=== PATIENT | male | born 1945 | race Caucasian/White ===

== ENCOUNTER 2017-01-05 13:01 | Emergency (ER) | payer MEDICARE, MEDICAID ==
[~2017-01-05] VITALS: Ht 172.7 cm; Wt 65.0 kg
[2017-01-05 13:13] VITALS: BP 123/79
[2017-01-05] MEDS ORDERED: MAALOX/HYOSCYAMINE/LIDOCAINE 45 ML BTL ONE (13:20)
[2017-01-05] MEDS ORDERED: PLEASE ENTER ALLERGIES MC SCH ×2 (13:30)
[2017-01-05] MEDS ORDERED: MAALOX/HYOSCYAMINE/LIDOCAINE 45 ML BTL PO ONE (13:30)
== END 2017-01-05 14:15 | disposition home or self-care (01) ==
LOC: ED 13:51
DX: T18.108A Unspecified foreign body in esophagus causing other injury, initial encounter (principal); K21.9 Gastro-esophageal reflux disease without esophagitis; I10 Essential (primary) hypertension; X58.XXXA Exposure to other specified factors, initial encounter; Y93.89 Activity, other specified; Y92.89 Other specified places as the place of occurrence of the external cause; Y99.8 Other external cause status
CPT/HCPCS: 99283

== ENCOUNTER 2017-05-22 05:03 | Emergency (ER) | payer MEDICARE, MEDICAID ==
[~2017-05-22] VITALS: Ht 172.7 cm; Wt 75.0 kg
[2017-05-22] MEDS ORDERED: BENZ-17 PO (05:23)
[2017-05-22] MEDS ORDERED: CETI10TA32 PO (05:23)
[2017-05-22] MEDS ORDERED: TRAM50TA2 PO (05:23)
[2017-05-22] MEDS ORDERED: SIMV10TA3 PO (05:23)
[2017-05-22] MEDS ORDERED: DOCU100C33 PO (05:23)
[2017-05-22] MEDS ORDERED: [UNRECOGNIZED DRUG - CODE] OP (05:23)
[2017-05-22] MEDS ORDERED: OMEP-110 PO (05:23)
[2017-05-22] MEDS ORDERED: SERT50TA5 PO (05:23)
[2017-05-22] MEDS ORDERED: BENA40TA2 PO (05:23)
[2017-05-22] MEDS ORDERED: METR1KIT XX (05:23)
[2017-05-22] MEDS ORDERED: PANTOPRAZOLE 40 MG IV ONE (05:25)
[2017-05-22] MEDS ORDERED: FAMOTIDINE 20 MG/2 ML ONE (05:25)
[2017-05-22] MEDS ORDERED: ONDANSETRON 2MG/ML, 2ML ONE (05:25)
[2017-05-22] MEDS ORDERED: FAMOTIDINE 20 MG/2 ML IVPush ONE (05:30)
[2017-05-22] MEDS ORDERED: SODIUM CHLORIDE FLUSH 10ML SYR IVF ONE (05:30)
[2017-05-22] MEDS ORDERED: ONDANSETRON 2MG/ML, 2ML IVPush ONE (05:30)
[2017-05-22] MEDS ORDERED: SODIUM CHLORIDE 0.9% 1,000ML IVBOLUS ONE (05:30)
[2017-05-22] MEDS ORDERED: PANTOPRAZOLE 40 MG IV IVPush ONE (05:30)
[2017-05-22 05:42] LABS: BASOPHILS # (AUTO) 0.02 x10^3/uL (0-0.1); BASOPHILS % (AUTO) 0 % (0-1); EOSINOPHILS # (AUTO) 0.03 x10^3/uL (0-0.4); EOSINOPHILS % (AUTO) 0 % (1-7); LYMPHOCYTES # (AUTO) 0.45 x10^3/uL (1-3.4); LYMPHOCYTES % (AUTO) 6 % (22-44); MD NO; MEAN CORPUSCULAR HEMOGLOBIN 30.7 pg (27.5-34.5); MEAN CORPUSCULAR HGB CONC 33.8 g/dL (33.2-36.2); MEAN CORPUSCULAR VOLUME 90.9 fL (81-97); MEAN PLATELET VOLUME 7.7 fL (7.4-10.4); MONOCYTES # (AUTO) 0.33 x10^3/uL (0.2-0.8); MONOCYTES % (AUTO) 4 % (2-9); NEUTROPHILS # (AUTO) 7.36 x10^3/uL (1.8-6.8); NEUTROPHILS % (AUTO) 90 % (42-75); PLATELET COUNT 206 x10^3/uL (130-400); RED BLOOD COUNT 4.43 x10^6/uL (4.38-5.82); RED CELL DISTRIBUTION WIDTH 13.6 % (9.4-14.8)
[2017-05-22 05:53] LABS: ALANINE AMINOTRANSFERASE 23 U/L (12-78); ALBUMIN 3.8 g/dL (3.4-5.0); ANION GAP 9 mmol/L (5-15); CALCIUM 10.2 mg/dL (8.5-10.1); CHLORIDE 102 mmol/L (98-107)
[2017-05-22 05:55] LABS: ALKALINE PHOSPHATASE 54 U/L (45-117); BILIRUBIN,TOTAL 0.5 mg/dL (0.2-1.0); TOTAL PROTEIN 7.5 g/dL (6.4-8.2)
[2017-05-22] MEDS ORDERED: MAALOX/HYOSCYAMINE/LIDOCAINE 45 ML BTL PO ONE (06:00)
[2017-05-22] MEDS ORDERED: OMNIPAQUE 350 MG/ML, 100ML BOTTLE ONE (07:21)
[2017-05-22] MEDS ORDERED: MAALOX/HYOSCYAMINE/LIDOCAINE 45 ML BTL ONE (07:51)
[2017-05-22 11:52] VITALS: BP 143/77
== END 2017-05-22 11:55 | disposition home or self-care (01) ==
LOC: ED 05:52
DX: K29.00 Acute gastritis without bleeding (principal); K21.9 Gastro-esophageal reflux disease without esophagitis; I10 Essential (primary) hypertension; E78.00 Pure hypercholesterolemia, unspecified; Z86.73 Personal history of transient ischemic attack (TIA), and cerebral infarction without residual deficits
CPT/HCPCS: 36415; 74177; 80053; 83690; 85025; 86850; 86900; 93005; 96374; 96375; 99285; C9113; J2405; J7030; Q9967; S0028

== ENCOUNTER 2018-05-08 22:54 | Inpatient (IN) | payer MEDICARE, MEDICAID ==
[~2018-05-08] VITALS: Ht 172.7 cm; Wt 68.9 kg
[~2018-05-08 22:54] MED LIST: BENA40TA3 PO; BENZ-17 PO; CETI10TA32 PO; DOCU100C33 PO; METR1KIT XX; OMEP-110 PO; SERT50TA28 PO; SIMV10TA3 PO; TRAM50TA2 PO; [UNRECOGNIZED DRUG - CODE] OP
--- NOTE | 2018-05-08 23:08 | NUR ---
CHUCK VELAZQUEZ NUMBER [phone] FOR POC UPDATE FOR PT.
--- NOTE | 2018-05-08 23:11 | NUR ---
PT PRESENTS TO ED C/O VOMITING x2 TODAY. STATES ABLE TO TOLERATE PO INTAKE. DENIES ANY OTHER COMPLAINTS AT THIS TIME. NO FEVER NOTED. NO EMESIS NOTED IN ED. PT CAN TOLERATE PO INTAKE. SEEN AT [facility] TODAY AND HERE BECAUSE "THEY DONT KNOW WHAT THE HELL THEY TALKIN BOUT."
[2018-05-08] MEDS ORDERED: ONDANSETRON ODT 4 MG PO ONE (23:30)
--- NOTE | 2018-05-08 23:44 | NUR ---
went to perform ekg and pt/gurney was not in room. will check back soon
--- NOTE | 2018-05-09 00:04 | NUR ---
Patient could not tolerate positioning for x-ray.
[2018-05-09] MEDS ORDERED: ONDANSETRON ODT 4 MG ONE (00:14)
--- NOTE | 2018-05-09 00:24 | NUR ---
BREAK RN: PT HAD ONE EPISODE OF DARK EMESIS, MEDICATED PER EMAR. CLEANED, GOWN CHANGED.
[2018-05-09 00:35] LABS: MEAN CORPUSCULAR HGB CONC 31.4 g/dL (33.2-36.2); MEAN CORPUSCULAR VOLUME 79.6 fL (81-97); PLATELET COUNT 447 x10^3/uL (130-400); RED CELL DISTRIBUTION WIDTH 24.5 % (9.4-14.8)
[2018-05-09 00:39] LABS: ALANINE AMINOTRANSFERASE 35 U/L (12-78); ALBUMIN 4.2 g/dL (3.4-5.0); ANION GAP 8 mmol/L (5-15); CALCIUM 9.5 mg/dL (8.5-10.1); CHLORIDE 104 mmol/L (98-107); CREATININE 1.04 mg/dL (0.7-1.3)
[2018-05-09 00:44] LABS: ALKALINE PHOSPHATASE 78 U/L (45-117); BILIRUBIN,TOTAL 0.5 mg/dL (0.2-1.0); TOTAL PROTEIN 8.1 g/dL (6.4-8.2); TROPONIN I < 0.015 ng/mL (0.000-0.045)
[2018-05-09 00:51] LABS: BASOPHILS # (AUTO) 0.05 x10^3/uL (0-0.1); BASOPHILS % (AUTO) 0 % (0-1); EOSINOPHILS # (AUTO) 0.22 x10^3/uL (0-0.4); EOSINOPHILS % (AUTO) 1 % (1-7); LYMPHOCYTES # (AUTO) 1.16 x10^3/uL (1-3.4); LYMPHOCYTES % (AUTO) 7 % (22-44); MD SCAN; MONOCYTES # (AUTO) 0.57 x10^3/uL (0.2-0.8); MONOCYTES % (AUTO) 4 % (2-9); NEUTROPHILS # (AUTO) 14.07 x10^3/uL (1.8-6.8); NEUTROPHILS % (AUTO) 88 % (42-75)
[2018-05-09] MEDS ORDERED: SODIUM CHLORIDE 0.9% 1,000 ML IV ONE (00:51)
[2018-05-09] MEDS ORDERED: METOCLOPRAMIDE 5 MG/ML, 2ML IVPush ONE (01:00)
[2018-05-09] MEDS ORDERED: SODIUM CHLORIDE FLUSH 10ML SYR IVF ONE ×2 (01:00→02:30)
[2018-05-09] MEDS ORDERED: METOCLOPRAMIDE 5 MG/ML, 2ML ONE (01:23)
--- NOTE | 2018-05-09 01:25 | NUR ---
PT MEDICATED PER MAR. IV STARTED AND NS INFUSING APPROPRIATELY. NO IMMEDIATE NEEDS AT THIS TIME. CALL LIGHT WITHIN REACH.
--- NOTE | 2018-05-09 02:00 | NUR ---
PT PUKED AND WHAT APPEARED TO BE DARK RED APPEARING EMESIS. MD NOTIFIED.
[2018-05-09] MEDS ORDERED: PANTOPRAZOLE 80 MG in SODIUM CHLORIDE 0.9% 100 ML IV SCH (02:01)
[2018-05-09] MEDS ORDERED: PANTOPRAZOLE 40 MG IV ONE (02:05)
[2018-05-09] MEDS ORDERED: ONDANSETRON 2MG/ML, 2ML ONE (02:05)
--- NOTE | 2018-05-09 02:20 | NUR ---
PT IN IMAGING.
[2018-05-09] MEDS ORDERED: PANTOPRAZOLE 40 MG IV IVPush ONE (02:30)
[2018-05-09] MEDS ORDERED: ONDANSETRON 2MG/ML, 2ML IVPush ONE (02:30)
--- NOTE | 2018-05-09 02:37 | NUR ---
MEDICATED PER JUL. NADN. VSS. CALL LIGHT WITHIN REACH. AWAITING IMAGING RESULTS.
[2018-05-09] MEDS: SODIUM CHLORIDE 0.9% 1,000 ML IV SCH ×3 (02:54→22:08)
[2018-05-09 02:55] LABS: INTERNATIONAL NORMALIZED RATIO 1.03 (0.93-1.1); PROTHROMBIN TIME 10.9 Seconds (9.6-11.5)
[2018-05-09] MEDS ORDERED: BISACODYL 10 MG SUPP PR PRN (03:00)
[2018-05-09] MEDS ORDERED: hydrALAzine 20 MG/ML, 1ML IVPush PRN (03:00)
[2018-05-09] MEDS ORDERED: POLYETHYLENE GLYCOL 17 GM PACKET PO PRN (03:00)
[2018-05-09] MEDS ORDERED: GABAPENTIN 300 MG CAPSULE PO PRN (03:00)
[2018-05-09] MEDS ORDERED: ONDANSETRON 2MG/ML, 2ML IVPush PRN (03:00)
[2018-05-09] MEDS ORDERED: ONDANSETRON ODT 4 MG PO PRN (03:00)
[2018-05-09] MEDS ORDERED: PROMETHAZINE 25 MG/ML, 1ML IM PRN (03:00)
[2018-05-09] MEDS ORDERED: DOCUSATE 100 MG CAPSULE PO PRN (03:00)
[2018-05-09] MEDS ORDERED: LABETALOL 5MG/ML, 20ML IVPush PRN (03:00)
[2018-05-09 03:57] LABS: FREE T4 (FREE THYROXINE) 1.15 ng/dL (0.76-1.46); THYROID STIMULATING HORMONE 2.92 mIU/L (0.358-3.740)
[2018-05-09 04:07] LABS: HEMOGLOBIN A1C 4.8 % (4.2-6.3)
[2018-05-09 04:15] VITALS: BP 165/90
[2018-05-09] MEDS: BENAZEPRIL 20 MG TABLET PO SCH ×5 (04:27→21:00)
[2018-05-09 04:47] LABS: MICROSCOPIC NOT IND
[2018-05-09 04:51] LABS: CULTURE INDICATED? NO
[2018-05-09 07:20] VITALS: BP 159/84
[2018-05-09] MEDS: OMEPRAZOLE 20 MG CAPSULE.DR PO SCH ×2 (08:49→21:42)
[2018-05-09] MEDS: SERTRALINE 50MG TABLET PO SCH (08:49)
[2018-05-09] MEDS: SENNA/DOCUSATE TABLET PO SCH (09:30)
[2018-05-09 12:35] VITALS: BP 152/100
[2018-05-09] MEDS ORDERED: LIDOCAINE-MPF 2% ,5ML ONE (15:58)
[2018-05-09] MEDS ORDERED: PROPOFOL 10 MG/ML, 20ML ONE (15:58)
[2018-05-09] MEDS ORDERED: hydrALAzine 20 MG/ML, 1ML IV PRN (16:30)
[2018-05-09] MEDS ORDERED: OXYcodone 5 MG/5 ML ORAL.SOL UDC PO PRN (16:30)
[2018-05-09] MEDS ORDERED: HYDROmorphone 2 MG/ML, 1ML IVPush PRN (16:30)
[2018-05-09] MEDS ORDERED: LABETALOL 5MG/ML, 20ML IV PRN (16:30)
[2018-05-09] MEDS ORDERED: ACETAMINOPHEN 325 MG TABLET PO PRN (16:30)
[2018-05-09] MEDS ORDERED: FENTANYL PF 100 MCG/2ML IV PRN (16:30)
[2018-05-09] MEDS ORDERED: ONDANSETRON 2MG/ML, 2ML IV PRN (16:30)
[2018-05-09] MEDS ORDERED: ONDANSETRON ODT 8 MG PO PRN (16:30)
[2018-05-09] MEDS: morphine SULFATE 10 MG/ML, 1ML IVPush PRN (18:23)
[2018-05-09 19:52] VITALS: BP 111/72
[2018-05-09] MEDS: SIMVASTATIN 10 MG TABLET PO SCH (21:42)
[2018-05-09] MEDS: ACETAMINOPHEN 325 MG TABLET PO PRN (21:59)
[2018-05-10 01:59] VITALS: BP 123/73
[2018-05-10] MEDS: PANTOPRAZOLE 80 MG in SODIUM CHLORIDE 0.9% 100 ML IV SCH ×3 (02:49→23:09)
[2018-05-10 05:42] LABS: CALCIUM 7.8 mg/dL (8.5-10.1); CHLORIDE 110 mmol/L (98-107)
[2018-05-10 05:48] LABS: ALANINE AMINOTRANSFERASE 25 U/L (12-78); ALBUMIN 3.4 g/dL (3.4-5.0); ALKALINE PHOSPHATASE 59 U/L (45-117); ANION GAP 6 mmol/L (5-15); BILIRUBIN,TOTAL 0.4 mg/dL (0.2-1.0); CHOL/HDL RATIO 3.1; CHOLESTEROL, TOTAL 103 mg/dL (140-239); CREATININE 0.89 mg/dL (0.7-1.3); HDL CHOL % 32 % (26-37); HDL CHOLESTEROL (DIRECT) 33 mg/dL (40-60); LDL CHOLESTEROL,CALCULATED 50 mg/dL (54-169); LDL/HDL RATIO 1.5 (0.5-3.0); TOTAL PROTEIN 6.4 g/dL (6.4-8.2); TRIGLYCERIDES 102 mg/dL (50-200); VLDL CHOLESTEROL 20 mg/dL (0-25)
[2018-05-10 07:21] VITALS: BP 106/63
[2018-05-10] MEDS: BENAZEPRIL 20 MG TABLET PO SCH ×4 (09:10→23:13)
[2018-05-10] MEDS: SENNA/DOCUSATE TABLET PO SCH (09:10)
[2018-05-10] MEDS: OMEPRAZOLE 20 MG CAPSULE.DR PO SCH ×2 (09:11→19:53)
[2018-05-10] MEDS: ACETAMINOPHEN 325 MG TABLET PO PRN ×2 (09:11→19:53)
[2018-05-10] MEDS: SERTRALINE 50MG TABLET PO SCH (09:11)
[2018-05-10] MEDS ORDERED: PANT40TA3 PO (13:32)
[2018-05-10 14:24] VITALS: BP 107/69
[2018-05-10 18:44] VITALS: BP 118/74
[2018-05-10] MEDS: SIMVASTATIN 10 MG TABLET PO SCH (19:53)
[2018-05-11 00:37] VITALS: BP 152/78
[2018-05-11 07:41] VITALS: BP 130/74
[2018-05-11] MEDS: OMEPRAZOLE 20 MG CAPSULE.DR PO SCH ×2 (08:37→20:59)
[2018-05-11] MEDS: BENAZEPRIL 20 MG TABLET PO SCH ×3 (08:37→18:08)
[2018-05-11] MEDS: morphine SULFATE 10 MG/ML, 1ML IVPush PRN (08:37)
[2018-05-11] MEDS: SERTRALINE 50MG TABLET PO SCH (08:38)
[2018-05-11] MEDS: SENNA/DOCUSATE TABLET PO SCH (08:39)
[2018-05-11] MEDS: PANTOPRAZOLE 80 MG in SODIUM CHLORIDE 0.9% 100 ML IV SCH ×2 (10:29→21:20)
[2018-05-11 11:04] LABS: ALANINE AMINOTRANSFERASE 28 U/L (12-78); ALBUMIN 3.4 g/dL (3.4-5.0); ANION GAP 5 mmol/L (5-15); CALCIUM 7.9 mg/dL (8.5-10.1); CHLORIDE 112 mmol/L (98-107); CREATININE 0.87 mg/dL (0.7-1.3)
[2018-05-11 11:10] LABS: ALKALINE PHOSPHATASE 59 U/L (45-117); BILIRUBIN,TOTAL 0.3 mg/dL (0.2-1.0); TOTAL PROTEIN 6.5 g/dL (6.4-8.2)
[2018-05-11 13:09] LABS: BASOPHILS # (AUTO) 0.11 x10^3/uL (0-0.1); BASOPHILS % (AUTO) 2 % (0-1); EOSINOPHILS # (AUTO) 0.24 x10^3/uL (0-0.4); EOSINOPHILS % (AUTO) 4 % (1-7); LYMPHOCYTES # (AUTO) 1.25 x10^3/uL (1-3.4); LYMPHOCYTES % (AUTO) 18 % (22-44); MD MORPH REVIEW ONLY; MEAN CORPUSCULAR HEMOGLOBIN 25.8 pg (27.5-34.5); MEAN CORPUSCULAR HGB CONC 31.7 g/dL (33.2-36.2); MEAN CORPUSCULAR VOLUME 81.4 fL (81-97); MEAN PLATELET VOLUME 8.3 fL (7.4-10.4); MONOCYTES # (AUTO) 0.58 x10^3/uL (0.2-0.8); MONOCYTES % (AUTO) 8 % (2-9); NEUTROPHILS # (AUTO) 4.84 x10^3/uL (1.8-6.8); NEUTROPHILS % (AUTO) 69 % (42-75); PLATELET COUNT 352 x10^3/uL (130-400); RED BLOOD COUNT 4.16 x10^6/uL (4.38-5.82); RED CELL DISTRIBUTION WIDTH 26.6 % (9.4-14.8)
[2018-05-11 13:10] LABS: ANISOCYTOSIS 2+; HYPOCHROMIA 1+; MICROCYTOSIS 1+; OVALOCYTES 1+; POLYCHROMASIA 1+
[2018-05-11 13:11] LABS: <PLATELET ESTIMATE> ADEQUATE; <PLT MORPHOLOGY> NORMAL PLT MORPH
[2018-05-11 15:42] VITALS: BP 106/68
[2018-05-11] MEDS: ACETAMINOPHEN 325 MG TABLET PO PRN (18:07)
[2018-05-11 19:34] VITALS: BP 117/71
[2018-05-11] MEDS: SIMVASTATIN 10 MG TABLET PO SCH (20:59)
[2018-05-12 00:34] VITALS: BP 115/77
[2018-05-12] MEDS: BENAZEPRIL 20 MG TABLET PO SCH ×5 (00:37→20:03)
[2018-05-12 06:15] LABS: CHLORIDE 111 mmol/L (98-107)
[2018-05-12 06:19] LABS: MEAN CORPUSCULAR HEMOGLOBIN 25.7 pg (27.5-34.5); MEAN CORPUSCULAR HGB CONC 31.5 g/dL (33.2-36.2); MEAN CORPUSCULAR VOLUME 81.7 fL (81-97); MEAN PLATELET VOLUME 8.4 fL (7.4-10.4); PLATELET COUNT 333 x10^3/uL (130-400); RED BLOOD COUNT 4.22 x10^6/uL (4.38-5.82); RED CELL DISTRIBUTION WIDTH 26.5 % (9.4-14.8)
[2018-05-12 06:28] LABS: ALANINE AMINOTRANSFERASE 27 U/L (12-78); ALBUMIN 3.5 g/dL (3.4-5.0); ALKALINE PHOSPHATASE 61 U/L (45-117); ANION GAP 7 mmol/L (5-15); BILIRUBIN,TOTAL 0.4 mg/dL (0.2-1.0); CALCIUM 8.5 mg/dL (8.5-10.1); CREATININE 0.93 mg/dL (0.7-1.3); TOTAL PROTEIN 6.7 g/dL (6.4-8.2)
[2018-05-12 07:04] LABS: BASOPHILS # (AUTO) 0.08 x10^3/uL (0-0.1); BASOPHILS % (AUTO) 1 % (0-1); EOSINOPHILS # (AUTO) 0.19 x10^3/uL (0-0.4); EOSINOPHILS % (AUTO) 3 % (1-7); LYMPHOCYTES # (AUTO) 1.46 x10^3/uL (1-3.4); LYMPHOCYTES % (AUTO) 23 % (22-44); MD MORPH REVIEW ONLY; MONOCYTES % (AUTO) 9 % (2-9); NEUTROPHILS % (AUTO) 64 % (42-75)
[2018-05-12 07:15] LABS: ANISOCYTOSIS 2+; HYPOCHROMIA 1+; MICROCYTOSIS 1+
[2018-05-12 07:16] LABS: <PLATELET ESTIMATE> ADEQUATE; <PLT MORPHOLOGY> NORMAL PLT MORPH; OVALOCYTES 1+
[2018-05-12 08:37] VITALS: BP 122/70
[2018-05-12] MEDS: PANTOPRAZOLE 80 MG in SODIUM CHLORIDE 0.9% 100 ML IV SCH (08:38)
[2018-05-12] MEDS: SENNA/DOCUSATE TABLET PO SCH (08:38)
[2018-05-12] MEDS: OMEPRAZOLE 20 MG CAPSULE.DR PO SCH ×2 (08:39→20:03)
[2018-05-12] MEDS: SERTRALINE 50MG TABLET PO SCH (08:39)
[2018-05-12] MEDS: ACETAMINOPHEN 325 MG TABLET PO PRN (08:41)
[2018-05-12] MEDS: PANTOPROZOLE 40MG TABLET PO SCH ×2 (11:00→20:03)
[2018-05-12 14:39] VITALS: BP 108/74
[2018-05-12 18:29] VITALS: BP 123/79
[2018-05-12] MEDS: SIMVASTATIN 10 MG TABLET PO SCH (20:03)
[2018-05-13 01:09] VITALS: BP 120/74
[2018-05-13 05:56] LABS: ALANINE AMINOTRANSFERASE 28 U/L (12-78); ALBUMIN 3.5 g/dL (3.4-5.0); ANION GAP 7 mmol/L (5-15); CALCIUM 8.6 mg/dL (8.5-10.1); CHLORIDE 112 mmol/L (98-107); CREATININE 0.91 mg/dL (0.7-1.3)
[2018-05-13 05:58] LABS: ALKALINE PHOSPHATASE 61 U/L (45-117); BILIRUBIN,TOTAL 0.3 mg/dL (0.2-1.0); TOTAL PROTEIN 6.8 g/dL (6.4-8.2)
[2018-05-13] MEDS: PANTOPROZOLE 40MG TABLET PO SCH ×2 (06:16→21:00)
[2018-05-13 06:23] LABS: MEAN CORPUSCULAR HEMOGLOBIN 26.1 pg (27.5-34.5); MEAN CORPUSCULAR HGB CONC 31.6 g/dL (33.2-36.2); MEAN CORPUSCULAR VOLUME 82.5 fL (81-97); MEAN PLATELET VOLUME 8.5 fL (7.4-10.4); PLATELET COUNT 322 x10^3/uL (130-400); RED BLOOD COUNT 4.25 x10^6/uL (4.38-5.82); RED CELL DISTRIBUTION WIDTH 26.5 % (9.4-14.8)
[2018-05-13 06:46] LABS: BASOPHILS # (AUTO) 0.09 x10^3/uL (0-0.1); BASOPHILS % (AUTO) 1 % (0-1); EOSINOPHILS # (AUTO) 0.42 x10^3/uL (0-0.4); EOSINOPHILS % (AUTO) 6 % (1-7); LYMPHOCYTES # (AUTO) 1.51 x10^3/uL (1-3.4); LYMPHOCYTES % (AUTO) 22 % (22-44); MONOCYTES # (AUTO) 0.55 x10^3/uL (0.2-0.8); MONOCYTES % (AUTO) 8 % (2-9); NEUTROPHILS # (AUTO) 4.34 x10^3/uL (1.8-6.8); NEUTROPHILS % (AUTO) 63 % (42-75)
[2018-05-13 06:47] LABS: MD SCAN
[2018-05-13 07:01] VITALS: BP 114/79
[2018-05-13] MEDS: SENNA/DOCUSATE TABLET PO SCH (09:00)
[2018-05-13] MEDS: ACETAMINOPHEN 325 MG TABLET PO PRN ×2 (09:11→18:34)
[2018-05-13] MEDS: BENAZEPRIL 20 MG TABLET PO SCH ×4 (09:11→21:00)
[2018-05-13] MEDS: OMEPRAZOLE 20 MG CAPSULE.DR PO SCH ×2 (09:11→21:00)
[2018-05-13] MEDS: SERTRALINE 50MG TABLET PO SCH (09:11)
[2018-05-13 12:44] VITALS: BP 113/72
[2018-05-13 18:45] VITALS: BP 125/85
[2018-05-13] MEDS: SIMVASTATIN 10 MG TABLET PO SCH (21:00)
[2018-05-14 01:54] VITALS: BP 133/76
[2018-05-14] MEDS: PANTOPROZOLE 40MG TABLET PO SCH ×2 (05:57→20:59)
[2018-05-14 06:06] LABS: MEAN CORPUSCULAR HEMOGLOBIN 25.7 pg (27.5-34.5); MEAN CORPUSCULAR VOLUME 82.7 fL (81-97); MEAN PLATELET VOLUME 8.9 fL (7.4-10.4); PLATELET COUNT 293 x10^3/uL (130-400); RED BLOOD COUNT 4.22 x10^6/uL (4.38-5.82); RED CELL DISTRIBUTION WIDTH 26.4 % (9.4-14.8)
[2018-05-14 06:21] LABS: BASOPHILS % (AUTO) 2 % (0-1); EOSINOPHILS % (AUTO) 3 % (1-7); LYMPHOCYTES # (AUTO) 1.23 x10^3/uL (1-3.4); LYMPHOCYTES % (AUTO) 24 % (22-44); MONOCYTES # (AUTO) 0.44 x10^3/uL (0.2-0.8); MONOCYTES % (AUTO) 9 % (2-9); NEUTROPHILS # (AUTO) 3.18 x10^3/uL (1.8-6.8); NEUTROPHILS % (AUTO) 62 % (42-75)
[2018-05-14 06:46] LABS: MD SCAN
[2018-05-14 06:48] VITALS: BP 134/79
[2018-05-14] MEDS: BENAZEPRIL 20 MG TABLET PO SCH ×4 (07:52→21:00)
[2018-05-14] MEDS: SERTRALINE 50MG TABLET PO SCH (07:53)
[2018-05-14] MEDS: OMEPRAZOLE 20 MG CAPSULE.DR PO SCH ×2 (07:53→20:59)
[2018-05-14] MEDS: ACETAMINOPHEN 325 MG TABLET PO PRN ×3 (07:53→18:38)
[2018-05-14] MEDS: SENNA/DOCUSATE TABLET PO SCH (07:53)
[2018-05-14] MEDS: CALCIUM CARBONATE 500 MG TAB.CHEW PO PRN ×2 (11:11→18:38)
[2018-05-14 12:29] VITALS: BP 149/92
[2018-05-14] MEDS: ARTIFICIAL TEARS 15 DROP/ML BOTTLE EACHEYE PRN (18:38)
[2018-05-14 19:45] VITALS: BP 124/75
[2018-05-14] MEDS: SIMVASTATIN 10 MG TABLET PO SCH (21:00)
[2018-05-14] MEDS: DIPHENHYDRAMINE 25 MG CAPSULE PO PRN (21:28)
[2018-05-15 01:39] VITALS: BP 145/89
[2018-05-15] MEDS: PANTOPROZOLE 40MG TABLET PO SCH ×2 (05:32→20:51)
[2018-05-15 07:10] VITALS: BP 133/79
[2018-05-15 07:37] LABS: MEAN CORPUSCULAR HEMOGLOBIN 25.9 pg (27.5-34.5); MEAN CORPUSCULAR HGB CONC 31.1 g/dL (33.2-36.2); MEAN CORPUSCULAR VOLUME 83.3 fL (81-97); MEAN PLATELET VOLUME 8.4 fL (7.4-10.4); PLATELET COUNT 290 x10^3/uL (130-400); RED BLOOD COUNT 4.49 x10^6/uL (4.38-5.82); RED CELL DISTRIBUTION WIDTH 26.7 % (9.4-14.8)
[2018-05-15 07:47] LABS: ALANINE AMINOTRANSFERASE 23 U/L (12-78); ALBUMIN 3.6 g/dL (3.4-5.0); ANION GAP 7 mmol/L (5-15); CALCIUM 8.3 mg/dL (8.5-10.1); CHLORIDE 112 mmol/L (98-107); CREATININE 0.84 mg/dL (0.7-1.3)
[2018-05-15 07:49] LABS: ALKALINE PHOSPHATASE 62 U/L (45-117); BILIRUBIN,TOTAL 0.4 mg/dL (0.2-1.0); TOTAL PROTEIN 6.9 g/dL (6.4-8.2)
[2018-05-15 08:15] LABS: BASOPHILS # (AUTO) 0.08 x10^3/uL (0-0.1); BASOPHILS % (AUTO) 2 % (0-1); EOSINOPHILS # (AUTO) 0.16 x10^3/uL (0-0.4); EOSINOPHILS % (AUTO) 3 % (1-7); LYMPHOCYTES # (AUTO) 1.11 x10^3/uL (1-3.4); LYMPHOCYTES % (AUTO) 23 % (22-44); MD SCAN; MONOCYTES # (AUTO) 0.37 x10^3/uL (0.2-0.8); MONOCYTES % (AUTO) 8 % (2-9); NEUTROPHILS % (AUTO) 64 % (42-75)
[2018-05-15] MEDS: SERTRALINE 50MG TABLET PO SCH (08:53)
[2018-05-15] MEDS: OMEPRAZOLE 20 MG CAPSULE.DR PO SCH ×2 (08:53→20:51)
[2018-05-15] MEDS: SENNA/DOCUSATE TABLET PO SCH (08:53)
[2018-05-15] MEDS: ACETAMINOPHEN 325 MG TABLET PO PRN ×2 (08:53→21:01)
[2018-05-15] MEDS: BENAZEPRIL 20 MG TABLET PO SCH ×4 (08:53→20:51)
[2018-05-15 13:58] VITALS: BP 114/70
[2018-05-15 19:02] VITALS: BP 101/65
[2018-05-15] MEDS: DIPHENHYDRAMINE 25 MG CAPSULE PO PRN (20:51)
[2018-05-15] MEDS: SIMVASTATIN 10 MG TABLET PO SCH (20:52)
[2018-05-16 00:45] VITALS: BP 102/64
[2018-05-16] MEDS: PANTOPROZOLE 40MG TABLET PO SCH ×2 (05:25→20:32)
[2018-05-16] MEDS: ACETAMINOPHEN 325 MG TABLET PO PRN ×3 (05:26→20:32)
[2018-05-16 07:32] VITALS: BP 117/75
[2018-05-16] MEDS: SERTRALINE 50MG TABLET PO SCH (08:43)
[2018-05-16] MEDS: OMEPRAZOLE 20 MG CAPSULE.DR PO SCH ×2 (08:43→20:32)
[2018-05-16] MEDS: BENAZEPRIL 20 MG TABLET PO SCH ×4 (08:43→20:32)
[2018-05-16] MEDS: SENNA/DOCUSATE TABLET PO SCH (08:43)
[2018-05-16 15:10] VITALS: BP 118/75
[2018-05-16 18:21] VITALS: BP 117/74
[2018-05-16] MEDS: DIPHENHYDRAMINE 25 MG CAPSULE PO PRN (20:32)
[2018-05-16] MEDS: SIMVASTATIN 10 MG TABLET PO SCH (20:32)
[2018-05-16] MEDS: CALCIUM CARBONATE 500 MG TAB.CHEW PO PRN (20:32)
[2018-05-17 04:00] VITALS: BP 115/70
[2018-05-17 05:23] LABS: ALBUMIN 3.6 g/dL (3.4-5.0); ANION GAP 6 mmol/L (5-15); CALCIUM 8.8 mg/dL (8.5-10.1); CHLORIDE 114 mmol/L (98-107)
[2018-05-17 05:24] LABS: CREATININE 0.92 mg/dL (0.7-1.3)
[2018-05-17] MEDS: ACETAMINOPHEN 325 MG TABLET PO PRN ×2 (05:24→19:37)
[2018-05-17] MEDS: PANTOPROZOLE 40MG TABLET PO SCH ×2 (05:24→19:31)
[2018-05-17 06:03] LABS: MEAN CORPUSCULAR HEMOGLOBIN 26.5 pg (27.5-34.5); MEAN CORPUSCULAR HGB CONC 31.9 g/dL (33.2-36.2); MEAN CORPUSCULAR VOLUME 83.1 fL (81-97); PLATELET COUNT 259 x10^3/uL (130-400); RED BLOOD COUNT 4.58 x10^6/uL (4.38-5.82); RED CELL DISTRIBUTION WIDTH 27.2 % (9.4-14.8)
[2018-05-17 06:34] LABS: BASOPHILS # (AUTO) 0.08 x10^3/uL (0-0.1); BASOPHILS % (AUTO) 1 % (0-1); EOSINOPHILS # (AUTO) 0.31 x10^3/uL (0-0.4); EOSINOPHILS % (AUTO) 6 % (1-7); LYMPHOCYTES # (AUTO) 1.51 x10^3/uL (1-3.4); LYMPHOCYTES % (AUTO) 28 % (22-44); MD SCAN; MONOCYTES # (AUTO) 0.46 x10^3/uL (0.2-0.8); MONOCYTES % (AUTO) 8 % (2-9); NEUTROPHILS % (AUTO) 57 % (42-75)
[2018-05-17 07:35] VITALS: BP 105/70
[2018-05-17] MEDS: BENAZEPRIL 20 MG TABLET PO SCH ×4 (08:00→19:38)
[2018-05-17] MEDS: OXYcodone IR 5MG TABLET PO PRN (08:00)
[2018-05-17] MEDS: SENNA/DOCUSATE TABLET PO SCH (08:01)
[2018-05-17] MEDS: SERTRALINE 50MG TABLET PO SCH (08:01)
[2018-05-17] MEDS: OMEPRAZOLE 20 MG CAPSULE.DR PO SCH ×2 (08:01→19:37)
[2018-05-17 13:40] VITALS: BP 110/72
[2018-05-17 19:27] VITALS: BP 100/63
[2018-05-17] MEDS: SIMVASTATIN 10 MG TABLET PO SCH (19:37)
[2018-05-17] MEDS: DIPHENHYDRAMINE 25 MG CAPSULE PO PRN (19:41)
[2018-05-18 05:19] VITALS: BP 118/73
[2018-05-18] MEDS: PANTOPROZOLE 40MG TABLET PO SCH ×2 (05:21→19:54)
[2018-05-18 07:50] VITALS: BP 108/72
[2018-05-18] MEDS: SERTRALINE 50MG TABLET PO SCH (09:09)
[2018-05-18] MEDS: BENAZEPRIL 20 MG TABLET PO SCH ×4 (09:10→19:53)
[2018-05-18] MEDS: OXYcodone IR 5MG TABLET PO PRN (09:10)
[2018-05-18] MEDS: OMEPRAZOLE 20 MG CAPSULE.DR PO SCH (09:10)
[2018-05-18] MEDS: SENNA/DOCUSATE TABLET PO SCH (09:10)
[2018-05-18 14:00] VITALS: BP 122/78
[2018-05-18 19:48] VITALS: BP 106/69
[2018-05-18] MEDS: ACETAMINOPHEN 325 MG TABLET PO PRN (19:54)
[2018-05-18] MEDS: ARTIFICIAL TEARS 15 DROP/ML BOTTLE EACHEYE PRN (19:54)
[2018-05-18] MEDS: DIPHENHYDRAMINE 25 MG CAPSULE PO PRN (19:54)
[2018-05-18] MEDS: SIMVASTATIN 10 MG TABLET PO SCH (19:54)
[2018-05-19 02:03] VITALS: BP 106/71
[2018-05-19] MEDS: PANTOPROZOLE 40MG TABLET PO SCH ×2 (05:09→19:26)
[2018-05-19] MEDS: ACETAMINOPHEN 325 MG TABLET PO PRN ×3 (06:01→18:04)
[2018-05-19 07:30] VITALS: BP 106/63
[2018-05-19] MEDS: BENAZEPRIL 20 MG TABLET PO SCH ×4 (09:18→19:25)
[2018-05-19] MEDS: SERTRALINE 50MG TABLET PO SCH (09:18)
[2018-05-19] MEDS: SENNA/DOCUSATE TABLET PO SCH (09:19)
[2018-05-19 13:20] VITALS: BP 107/67
[2018-05-19 19:15] VITALS: BP 101/66
[2018-05-19 19:20] VITALS: BP 109/72
[2018-05-19] MEDS: CALCIUM CARBONATE 500 MG TAB.CHEW PO PRN (19:25)
[2018-05-19] MEDS: SIMVASTATIN 10 MG TABLET PO SCH (19:26)
[2018-05-19] MEDS: DIPHENHYDRAMINE 25 MG CAPSULE PO PRN (19:26)
[2018-05-20] VITALS (7 sets, daily range): BP systolic 99–113; BP diastolic 64–76
[2018-05-20] MEDS: PANTOPROZOLE 40MG TABLET PO SCH ×2 (06:11→19:29)
[2018-05-20] MEDS: SENNA/DOCUSATE TABLET PO SCH (09:00)
[2018-05-20] MEDS: BENAZEPRIL 20 MG TABLET PO SCH ×4 (09:35→21:00)
[2018-05-20] MEDS: ACETAMINOPHEN 325 MG TABLET PO PRN ×3 (09:35→19:28)
[2018-05-20] MEDS: SERTRALINE 50MG TABLET PO SCH (09:35)
[2018-05-20] MEDS: ARTIFICIAL TEARS 15 DROP/ML BOTTLE EACHEYE PRN (17:07)
[2018-05-20] MEDS: DIPHENHYDRAMINE 25 MG CAPSULE PO PRN (19:28)
[2018-05-20] MEDS: CALCIUM CARBONATE 500 MG TAB.CHEW PO PRN (19:28)
[2018-05-20] MEDS: SIMVASTATIN 10 MG TABLET PO SCH (19:29)
[2018-05-21 01:39] VITALS: BP 115/73
[2018-05-21] MEDS: ACETAMINOPHEN 325 MG TABLET PO PRN ×4 (04:28→19:50)
[2018-05-21] MEDS: PANTOPROZOLE 40MG TABLET PO SCH ×2 (06:24→20:00)
[2018-05-21 07:07] VITALS: BP 102/69
[2018-05-21] MEDS: SENNA/DOCUSATE TABLET PO SCH (08:52)
[2018-05-21] MEDS: SERTRALINE 50MG TABLET PO SCH (08:52)
[2018-05-21] MEDS: BENAZEPRIL 20 MG TABLET PO SCH ×4 (08:52→20:00)
[2018-05-21] MEDS: CALCIUM CARBONATE 500 MG TAB.CHEW PO PRN ×2 (17:13→19:51)
[2018-05-21 19:16] VITALS: BP 114/75
[2018-05-21] MEDS: DIPHENHYDRAMINE 25 MG CAPSULE PO PRN (19:51)
[2018-05-21] MEDS: SIMVASTATIN 10 MG TABLET PO SCH (20:00)
[2018-05-21 21:51] LABS: CLOSTRIDIUM DIFFICILE ANTIGEN NEGATIVE; CLOSTRIDIUM DIFFICILE TOXIN NEGATIVE (Negative)
[2018-05-22 00:39] VITALS: BP 105/64
[2018-05-22] MEDS: PANTOPROZOLE 40MG TABLET PO SCH ×2 (05:23→22:06)
[2018-05-22] MEDS: ACETAMINOPHEN 325 MG TABLET PO PRN ×2 (06:05→19:05)
[2018-05-22 07:12] VITALS: BP 99/68
[2018-05-22] MEDS: SENNA/DOCUSATE TABLET PO SCH (10:53)
[2018-05-22] MEDS: BENAZEPRIL 20 MG TABLET PO SCH ×4 (10:53→22:06)
[2018-05-22] MEDS: SERTRALINE 50MG TABLET PO SCH (10:53)
[2018-05-22 14:06] VITALS: BP 101/68
[2018-05-22] MEDS: CALCIUM CARBONATE 500 MG TAB.CHEW PO PRN (19:03)
[2018-05-22 19:05] VITALS: BP 100/66
[2018-05-22] MEDS: DIPHENHYDRAMINE 25 MG CAPSULE PO PRN (22:07)
[2018-05-22] MEDS: SIMVASTATIN 10 MG TABLET PO SCH (22:07)
[2018-05-23] VITALS (7 sets, daily range): BP systolic 83–113; BP diastolic 46–71
[2018-05-23] MEDS: PANTOPROZOLE 40MG TABLET PO SCH ×2 (05:56→21:17)
[2018-05-23] MEDS: ACETAMINOPHEN 325 MG TABLET PO PRN ×3 (06:00→18:37)
[2018-05-23] MEDS: BENAZEPRIL 20 MG TABLET PO SCH ×4 (08:38→21:00)
[2018-05-23] MEDS: SERTRALINE 50MG TABLET PO SCH (08:38)
[2018-05-23] MEDS: SENNA/DOCUSATE TABLET PO SCH (08:38)
[2018-05-23] MEDS ORDERED: SODIUM CHLORIDE 0.9%, 250ML IVBOLUS ONE (10:00)
[2018-05-23] MEDS: CALCIUM CARBONATE 500 MG TAB.CHEW PO PRN (19:00)
[2018-05-23] MEDS: DIPHENHYDRAMINE 25 MG CAPSULE PO PRN (21:16)
[2018-05-23] MEDS: SIMVASTATIN 10 MG TABLET PO SCH (21:17)
[2018-05-24 01:12] VITALS: BP 94/61
[2018-05-24] MEDS: PANTOPROZOLE 40MG TABLET PO SCH ×2 (05:02→20:54)
[2018-05-24] MEDS: ACETAMINOPHEN 325 MG TABLET PO PRN ×3 (05:46→20:48)
[2018-05-24 07:34] VITALS: BP 106/65
[2018-05-24] MEDS: BENAZEPRIL 20 MG TABLET PO SCH (07:39)
[2018-05-24] MEDS: SENNA/DOCUSATE TABLET PO SCH (07:42)
[2018-05-24] MEDS: SERTRALINE 50MG TABLET PO SCH (07:44)
[2018-05-24 14:00] VITALS: BP 110/75
[2018-05-24] MEDS ORDERED: OMEPRAZOLE 20 MG CAPSULE.DR PO SCH (17:00)
[2018-05-24] MEDS ORDERED: BENAZEPRIL 20 MG TABLET PO SCH (18:00)
[2018-05-24] MEDS: CALCIUM CARBONATE 500 MG TAB.CHEW PO PRN (18:42)
[2018-05-24 19:30] VITALS: BP 98/62
[2018-05-24] MEDS: SIMVASTATIN 10 MG TABLET PO SCH (20:49)
[2018-05-24] MEDS: DIPHENHYDRAMINE 25 MG CAPSULE PO PRN (20:49)
[2018-05-25 01:11] VITALS: BP 106/69
[2018-05-25] MEDS: PANTOPROZOLE 40MG TABLET PO SCH ×2 (06:47→20:05)
[2018-05-25 07:50] VITALS: BP 96/57
[2018-05-25] MEDS: SENNA/DOCUSATE TABLET PO SCH (08:12)
[2018-05-25] MEDS: SERTRALINE 50MG TABLET PO SCH (08:12)
[2018-05-25] MEDS: ACETAMINOPHEN 325 MG TABLET PO PRN ×2 (08:19→18:19)
[2018-05-25] MEDS ORDERED: SODIUM CHLORIDE 0.9% 1,000 ML IV SCH (12:30)
[2018-05-25 14:00] VITALS: BP 104/68
[2018-05-25] MEDS: SIMVASTATIN 10 MG TABLET PO SCH (20:05)
[2018-05-25] MEDS: CALCIUM CARBONATE 500 MG TAB.CHEW PO PRN (20:06)
[2018-05-25 20:07] VITALS: BP 119/72
[2018-05-25] MEDS: DIPHENHYDRAMINE 25 MG CAPSULE PO PRN (21:27)
[2018-05-26 01:14] VITALS: BP 119/75
[2018-05-26 08:05] VITALS: BP 110/68
[2018-05-26] MEDS: SENNA/DOCUSATE TABLET PO SCH (08:46)
[2018-05-26] MEDS: PANTOPROZOLE 40MG TABLET PO SCH ×2 (09:19→20:26)
[2018-05-26] MEDS: SERTRALINE 50MG TABLET PO SCH (09:19)
[2018-05-26] MEDS: ACETAMINOPHEN 325 MG TABLET PO PRN ×2 (09:19→20:26)
[2018-05-26 14:04] VITALS: BP 115/73
[2018-05-26 18:35] VITALS: BP 130/81
[2018-05-26] MEDS: SIMVASTATIN 10 MG TABLET PO SCH (20:27)
[2018-05-26] MEDS: DIPHENHYDRAMINE 25 MG CAPSULE PO PRN (20:27)
[2018-05-27 02:53] VITALS: BP 133/78
[2018-05-27] MEDS: PANTOPROZOLE 40MG TABLET PO SCH ×2 (06:28→19:37)
[2018-05-27 07:07] VITALS: BP 115/73
[2018-05-27] MEDS: SERTRALINE 50MG TABLET PO SCH (08:38)
[2018-05-27] MEDS: CALCIUM CARBONATE 500 MG TAB.CHEW PO PRN ×2 (08:38→18:32)
[2018-05-27] MEDS: SENNA/DOCUSATE TABLET PO SCH (08:38)
[2018-05-27] MEDS: ACETAMINOPHEN 325 MG TABLET PO PRN ×3 (08:38→18:32)
[2018-05-27 13:12] VITALS: BP 121/80
[2018-05-27] MEDS: ARTIFICIAL TEARS 15 DROP/ML BOTTLE EACHEYE PRN (14:16)
[2018-05-27] MEDS: SIMVASTATIN 10 MG TABLET PO SCH (19:37)
[2018-05-27] MEDS: DIPHENHYDRAMINE 25 MG CAPSULE PO PRN (19:37)
[2018-05-27 19:39] VITALS: BP 118/78
[2018-05-28 03:55] VITALS: BP 150/85
[2018-05-28] MEDS: PANTOPROZOLE 40MG TABLET PO SCH ×2 (06:27→20:59)
[2018-05-28 06:55] VITALS: BP 128/83
[2018-05-28] MEDS: SENNA/DOCUSATE TABLET PO SCH (09:00)
[2018-05-28] MEDS: ACETAMINOPHEN 325 MG TABLET PO PRN ×3 (09:18→22:05)
[2018-05-28] MEDS: SERTRALINE 50MG TABLET PO SCH (09:18)
[2018-05-28] MEDS: CALCIUM CARBONATE 500 MG TAB.CHEW PO PRN ×2 (09:23→17:47)
[2018-05-28 12:14] VITALS: BP 117/78
[2018-05-28 19:20] VITALS: BP 147/82
[2018-05-28] MEDS: SIMVASTATIN 10 MG TABLET PO SCH (20:59)
[2018-05-28] MEDS: DIPHENHYDRAMINE 25 MG CAPSULE PO PRN (20:59)
[2018-05-29 01:48] VITALS: BP 113/68
[2018-05-29] MEDS: PANTOPROZOLE 40MG TABLET PO SCH ×2 (05:32→20:15)
[2018-05-29] MEDS: ACETAMINOPHEN 325 MG TABLET PO PRN ×3 (05:45→16:50)
[2018-05-29 06:43] VITALS: BP 108/73
[2018-05-29] MEDS: SERTRALINE 50MG TABLET PO SCH (09:00)
[2018-05-29] MEDS: SENNA/DOCUSATE TABLET PO SCH (09:00)
[2018-05-29] MEDS: CALCIUM CARBONATE 500 MG TAB.CHEW PO PRN ×2 (12:27→19:04)
[2018-05-29 13:26] VITALS: BP 115/74
[2018-05-29 19:00] VITALS: BP 104/69
[2018-05-29] MEDS: SIMVASTATIN 10 MG TABLET PO SCH (20:15)
[2018-05-29] MEDS: DIPHENHYDRAMINE 25 MG CAPSULE PO PRN (20:15)
[2018-05-30 01:21] VITALS: BP 106/69
[2018-05-30] MEDS: PANTOPROZOLE 40MG TABLET PO SCH ×2 (05:44→21:00)
[2018-05-30] MEDS: ACETAMINOPHEN 325 MG TABLET PO PRN ×3 (05:45→18:19)
[2018-05-30] MEDS: CALCIUM CARBONATE 500 MG TAB.CHEW PO PRN ×3 (05:45→21:04)
[2018-05-30 06:33] VITALS: BP 117/73
[2018-05-30] MEDS: SENNA/DOCUSATE TABLET PO SCH (09:00)
[2018-05-30] MEDS: SERTRALINE 50MG TABLET PO SCH (10:19)
[2018-05-30 13:10] VITALS: BP 113/75
[2018-05-30] MEDS: SIMVASTATIN 10 MG TABLET PO SCH (21:00)
[2018-05-30] MEDS: DIPHENHYDRAMINE 25 MG CAPSULE PO PRN (21:04)
[2018-05-30 21:06] VITALS: BP 121/80
[2018-05-31 05:00] VITALS: BP 118/74
[2018-05-31] MEDS: PANTOPROZOLE 40MG TABLET PO SCH ×2 (06:08→20:00)
[2018-05-31 06:58] VITALS: BP 104/68
[2018-05-31] MEDS: SENNA/DOCUSATE TABLET PO SCH (08:28)
[2018-05-31] MEDS: SERTRALINE 50MG TABLET PO SCH (08:28)
[2018-05-31 12:04] VITALS: BP 119/80
[2018-05-31 18:40] VITALS: BP 121/79
[2018-05-31] MEDS: ACETAMINOPHEN 325 MG TABLET PO PRN (20:00)
[2018-05-31] MEDS: CALCIUM CARBONATE 500 MG TAB.CHEW PO PRN (20:00)
[2018-05-31] MEDS: DIPHENHYDRAMINE 25 MG CAPSULE PO PRN (20:00)
[2018-05-31] MEDS: SIMVASTATIN 10 MG TABLET PO SCH (20:00)
[2018-06-01 01:26] VITALS: BP 122/80
[2018-06-01] MEDS: PANTOPROZOLE 40MG TABLET PO SCH ×2 (05:55→20:19)
[2018-06-01 07:10] VITALS: BP 123/77
[2018-06-01] MEDS: SERTRALINE 50MG TABLET PO SCH (08:22)
[2018-06-01] MEDS: ACETAMINOPHEN 325 MG TABLET PO PRN ×2 (08:23→20:19)
[2018-06-01] MEDS: CALCIUM CARBONATE 500 MG TAB.CHEW PO PRN ×2 (08:23→20:19)
[2018-06-01] MEDS: SENNA/DOCUSATE TABLET PO SCH (08:24)
[2018-06-01 12:23] VITALS: BP 132/83
[2018-06-01 19:46] VITALS: BP 121/73
[2018-06-01] MEDS: SIMVASTATIN 10 MG TABLET PO SCH (20:19)
[2018-06-01] MEDS: DIPHENHYDRAMINE 25 MG CAPSULE PO PRN (20:19)
[2018-06-02 01:45] VITALS: BP 130/74
[2018-06-02] MEDS: PANTOPROZOLE 40MG TABLET PO SCH ×2 (05:35→21:02)
[2018-06-02 07:39] VITALS: BP 114/75
[2018-06-02] MEDS: SENNA/DOCUSATE TABLET PO SCH (08:01)
[2018-06-02] MEDS: ACETAMINOPHEN 325 MG TABLET PO PRN ×3 (08:12→20:58)
[2018-06-02] MEDS: SERTRALINE 50MG TABLET PO SCH (08:12)
[2018-06-02 13:04] VITALS: BP 109/78
[2018-06-02] MEDS: CALCIUM CARBONATE 500 MG TAB.CHEW PO PRN (16:52)
[2018-06-02 19:00] VITALS: BP 111/74
[2018-06-02] MEDS: SIMVASTATIN 10 MG TABLET PO SCH (20:58)
[2018-06-02] MEDS: DIPHENHYDRAMINE 25 MG CAPSULE PO PRN (20:59)
[2018-06-03 01:24] VITALS: BP 125/75
[2018-06-03] MEDS: PANTOPROZOLE 40MG TABLET PO SCH ×2 (05:49→21:20)
[2018-06-03 07:03] VITALS: BP 117/78
[2018-06-03] MEDS: SENNA/DOCUSATE TABLET PO SCH (07:28)
[2018-06-03] MEDS: ACETAMINOPHEN 325 MG TABLET PO PRN ×2 (07:28→21:20)
[2018-06-03] MEDS: SERTRALINE 50MG TABLET PO SCH (07:28)
[2018-06-03 13:05] VITALS: BP 115/55
[2018-06-03 19:35] VITALS: BP 126/76
[2018-06-03] MEDS: CALCIUM CARBONATE 500 MG TAB.CHEW PO PRN (21:20)
[2018-06-03] MEDS: SIMVASTATIN 10 MG TABLET PO SCH (21:20)
[2018-06-03] MEDS: DIPHENHYDRAMINE 25 MG CAPSULE PO PRN (21:20)
[2018-06-04 01:49] VITALS: BP 139/74
[2018-06-04] MEDS: PANTOPROZOLE 40MG TABLET PO SCH ×2 (06:31→20:29)
[2018-06-04 07:48] VITALS: BP 132/78
[2018-06-04] MEDS: SERTRALINE 50MG TABLET PO SCH (08:25)
[2018-06-04] MEDS: SENNA/DOCUSATE TABLET PO SCH (08:25)
[2018-06-04 13:51] VITALS: BP 137/72
[2018-06-04 19:20] VITALS: BP 136/86
[2018-06-04] MEDS: SIMVASTATIN 10 MG TABLET PO SCH (20:29)
[2018-06-04] MEDS: DIPHENHYDRAMINE 25 MG CAPSULE PO PRN (20:29)
[2018-06-04] MEDS: CALCIUM CARBONATE 500 MG TAB.CHEW PO PRN (20:29)
[2018-06-04] MEDS: ACETAMINOPHEN 325 MG TABLET PO PRN (20:30)
[2018-06-05 01:02] VITALS: BP 130/78
[2018-06-05] MEDS: CALCIUM CARBONATE 500 MG TAB.CHEW PO PRN ×2 (06:16→18:20)
[2018-06-05] MEDS: PANTOPROZOLE 40MG TABLET PO SCH ×2 (06:16→20:17)
[2018-06-05] MEDS: ACETAMINOPHEN 325 MG TABLET PO PRN ×3 (06:18→20:18)
[2018-06-05 07:10] VITALS: BP 133/83
[2018-06-05] MEDS: SERTRALINE 50MG TABLET PO SCH (09:00)
[2018-06-05] MEDS: SENNA/DOCUSATE TABLET PO SCH (09:00)
[2018-06-05 12:50] VITALS: BP 135/76
[2018-06-05 19:27] VITALS: BP 127/84
[2018-06-05] MEDS: SIMVASTATIN 10 MG TABLET PO SCH (20:17)
[2018-06-05] MEDS: DIPHENHYDRAMINE 25 MG CAPSULE PO PRN (20:17)
[2018-06-06 02:00] VITALS: BP 123/79
[2018-06-06] MEDS: PANTOPROZOLE 40MG TABLET PO SCH (05:59)
[2018-06-06 06:55] VITALS: BP 124/81
[2018-06-06] MEDS: SERTRALINE 50MG TABLET PO SCH (08:05)
[2018-06-06] MEDS: SENNA/DOCUSATE TABLET PO SCH (08:05)
[2018-06-06] MEDS: ACETAMINOPHEN 325 MG TABLET PO PRN ×2 (08:08→15:06)
[2018-06-06] MEDS ORDERED: SUCR1TAB33 PO (10:34)
[2018-06-06] MEDS: CALCIUM CARBONATE 500 MG TAB.CHEW PO PRN (15:06)
== END 2018-06-06 16:04 | disposition home health service (06) | DRG 380 ==
LOC: ED 23:27 → EDIP 05-09 02:54 → 3NE 05-09 03:52
PROVIDERS: ADMIT Internal Medicine; ATTEND Internal Medicine
PROC: 0DJ08ZZ Inspection of Upper Intestinal Tract, Via Natural or Artificial Opening Endoscopic (ICD-10-PCS; principal; 2018-05-09 15:30)
DX: K22.11 Ulcer of esophagus with bleeding (principal); E43 Unspecified severe protein-calorie malnutrition; I69.354 Hemiplegia and hemiparesis following cerebral infarction affecting left non-dominant side; I10 Essential (primary) hypertension; K21.0 Gastro-esophageal reflux disease with esophagitis; E86.0 Dehydration; F32.9 Major depressive disorder, single episode, unspecified; E78.00 Pure hypercholesterolemia, unspecified; D72.823 Leukemoid reaction; K44.9 Diaphragmatic hernia without obstruction or gangrene; E78.5 Hyperlipidemia, unspecified; D50.9 Iron deficiency anemia, unspecified; I95.9 Hypotension, unspecified; Z82.49 Family history of ischemic heart disease and other diseases of the circulatory system; Z79.899 Other long term (current) drug therapy
CPT/HCPCS: 36415; 71045; 74022; 80048; 80053; 80061; 81003; 82040; 83036; 83690; 83735; 84439; 84443; 84484; 85014; 85018; 85025; 85610; 85730; 86480; 86850; 86900; 87324; 93005; 96365; 96375; G0378; J2405; J2704; J3490; Q0162; C9113; J2270; J2765; J7030; J7050; Q0163